=== PATIENT | male | born 1955 | race Caucasian/White ===

== ENCOUNTER 2019-04-13 02:31 | Emergency (ER) | payer BC ==
[~2019-04-13] VITALS: Ht 172.7 cm; Wt 86.2 kg
[2019-04-13 02:35] VITALS: Ht 172.7 cm; Wt 86.2 kg
[2019-04-13] MEDS ORDERED: ESCITALOPRAM10 M1 PO (03:33)
[2019-04-13] MEDS ORDERED: ASPIR LOW81 MG PO (03:34)
[2019-04-13] MEDS ORDERED: BRILINTA90 M1 PO (03:34)
[2019-04-13] MEDS ORDERED: CARVEDILOL3.125 M1 PO (03:35)
[2019-04-13] MEDS ORDERED: LOSARTAN POTASS1 TA6 PO (03:37)
[2019-04-13] MEDS ORDERED: ATIVAN1 MG PO (03:38)
[2019-04-13] MEDS ORDERED: OMEPRAZOLE40 M1 PO (03:38)
[2019-04-13] MEDS ORDERED: LIPITOR80 MG PO (03:39)
[2019-04-13 03:59] LABS: BASOPHIL % 1.1 % (0-2); PLATELET COUNT 265 x10^3mcL (130-400)
[2019-04-13 04:07] LABS: RED CELL DISTRIBUTION WIDTH 15.3 % (11.5-14.5)
[2019-04-13 04:18] LABS: CALCIUM 8.8 mg/dL (8.5-10.1); CHLORIDE SERUM 107 mmol/L (98-107); CREATININE SERUM 0.8 mg/dL (0.7-1.3); GFR1 > 60 mL/min; GLUCOSE SERUM 113 mg/dL (74-106); POTASSIUM SERUM 3.5 mmol/L (3.5-5.1); SODIUM SERUM 146 mmol/L (136-145)
[2019-04-13 04:22] LABS: ALBUMIN 3.7 g/dL (3.4-5.0); ALKALINE PHOSPHATASE 90 U/L (46-116); ALT/SGPT 32 U/L (16-63); AST/SGOT 19 U/L (15-37); BILIRUBIN TOTAL 0.08 mg/dL (0.20-1.00); TOTAL PROTEIN, SERUM 7.1 g/dL (6.4-8.2)
[2019-04-13 06:00] LABS: AMPHETAMINE QUAL UR NONE DETECTED (See below)
[2019-04-13 06:38] VITALS: BP 129/68
== END 2019-04-13 06:38 | disposition other institution (70) ==
LOC: ED 02:31
PROVIDERS: Emergency Medicine
DX: R07.89 Other chest pain (principal); R51 Headache; F41.9 Anxiety disorder, unspecified; F10.129 Alcohol abuse with intoxication, unspecified; E78.00 Pure hypercholesterolemia, unspecified; I10 Essential (primary) hypertension; I25.2 Old myocardial infarction; Z98.890 Other specified postprocedural states; Z98.61 Coronary angioplasty status
CPT/HCPCS: G0480; J2060

== ENCOUNTER 2019-04-13 02:31 | Emergency (ER) | payer OTHER ==
[2019-04-13] MEDS ORDERED: ESCITALOPRAM10 M1 PO (03:33)
[2019-04-13] MEDS ORDERED: ASPIR LOW81 MG PO (03:34)
[2019-04-13] MEDS ORDERED: BRILINTA90 M1 PO (03:34)
[2019-04-13] MEDS ORDERED: CARVEDILOL3.125 M1 PO (03:35)
[2019-04-13] MEDS ORDERED: LOSARTAN POTASS1 TA6 PO (03:37)
[2019-04-13] MEDS ORDERED: OMEPRAZOLE40 M1 PO (03:38)
[2019-04-13] MEDS ORDERED: ATIVAN1 MG PO (03:38)
[2019-04-13] MEDS ORDERED: LIPITOR80 MG PO (03:39)
== END 2019-04-13 06:38 | disposition other institution (70) ==
LOC: ED 02:31
DX: Z02.89 Encounter for other administrative examinations (principal)